=== PATIENT | male | born 1960 | race Caucasian/White ===

== ENCOUNTER 2020-12-10 01:37 | Day surgery (SDCO) | payer OTHER ==
[~2020-12-10 01:37] MED LIST: BENTYL10 MG PO; CIPRO500 MG PO; METRONIDAZOLE500 MG PO; ZOFRAN8 MG PO
[2020-12-10 02:02] LABS: BASOPHIL 0.6 % (0-2); EOSINOPHIL 2.4 % (0-5); HCT 47.4 % (42.0-52.0); HGB 16.6 g/dl (13.2-18.0); MCH 33.6 pg (25.0-31.0); MONOCYTE 9.2 % (0-12); MPV 9.8 fL (6.0-9.5); NEUTROPHIL 36.5 % (41-80); NRBC 0; PLT 201 K/uL (150-400); RBC 4.94 M/uL (4.70-6.00); WBC 11.4 K/uL (4.0-10.5)
[2020-12-10 02:06] LABS: INR 1.1 (0.9-1.2); PROTHROMBIN TIME 13.5 SECONDS (11.4-13.6); PTT 28.2 SECONDS (22.2-34.7)
[2020-12-10 02:13] LABS: ALBUMIN 4.1 g/dL (3.4-5.0); BILIRUBIN - TOTAL 0.4 mg/dL (0.2-1.0); BUN/CREAT RATIO (CALC) 16.7 RATIO; CREATININE 0.78 mg/dL (0.67-1.17); POTASSIUM 3.7 mmol/L (3.5-5.1); TOTAL PROTEIN 8.1 g/dL (6.4-8.2)
[2020-12-10 05:39] LABS: PHOSPHORUS 3.9 mg/dL (2.6-4.7)
[2020-12-10] MEDS ORDERED: TIZANIDINE HCL4 MG PO (05:46)
[2020-12-10] MEDS ORDERED: AZELASTINE205.5 MCG/ (05:47)
--- NOTE | 2020-12-10 06:24 | NUR ---
PATIENT WATCHING TV WHILE ANSWERING QUESTIONS AND KEPT TALKING ABOUT A LADY ON THE SHOW WHO HE THINKS IS ACTUALLY A MALE, A "SHEMALE" HE SAYS. THEN BEGINS STATING "THEY ASK ME WHAT I WANT TO EAT AND I SAY COLLEEN MACI WITH A SIDE OF THIGHS" EXPLAINED TO HIM THAT WOMEN DON'T FIND THAT FUNNY BUT HE CONTINUES TO TALK ABOUT HOW HE LIKES TO GO TO DRIVE THROUGHS AND SAY THAT AND THAT HE FINDS IT FUNNY
[2020-12-10 06:37] LABS: CHOLESTEROL 194 mg/dL (<200); HDL 43 mg/dL (40-60); LDL - DIRECT 129 mg/dL (<100); TRIGLYCERIDES 107 mg/dL (<150)
[2020-12-10] MEDS ORDERED: ASPIRIN EC81 MG PO (17:33)
== END 2020-12-10 18:53 | disposition home or self-care (01) ==
LOC: FER 01:37 → FMS 04:52
PROVIDERS: Emergency Medicine; Nurse Practitioner; ADMIT Internal Medicine
DX: R07.9 Chest pain, unspecified (principal); I25.810 Atherosclerosis of coronary artery bypass graft(s) without angina pectoris; I65.22 Occlusion and stenosis of left carotid artery; I10 Essential (primary) hypertension; F17.210 Nicotine dependence, cigarettes, uncomplicated; Z86.79 Personal history of other diseases of the circulatory system; Z20.822 Contact with and (suspected) exposure to COVID-19; Z95.5 Presence of coronary angioplasty implant and graft; Z88.6 Allergy status to analgesic agent; Z88.5 Allergy status to narcotic agent; Z88.8 Allergy status to other drugs, medicaments and biological substances
CPT/HCPCS: 36415; 71045; 80053; 80061; 83735; 83880; 84100; 84484; 85025; 85610; 85730; 93005; 93880; 94010; G0378; J1170; J2405; U0002